=== PATIENT | female | born 1995 | race Caucasian/White ===

== ENCOUNTER 2021-04-15 16:56 | Emergency (ER) | payer OTHER ==
--- NOTE | 2021-04-15 17:45 | EDM.PDOC ---
ED HPI GENERAL MEDICAL PROBLEM - General Chief Complaint: Laceration Stated Complaint: LACERATION TO L HAND Time Seen by Provider: 04/15/21 17:19 Source of Information: Reports: Patient History Limitations: Reports: No Limitations - History of Present Illness INITIAL COMMENTS - FREE TEXT/NARRATIVE: Patient opening a can of fruit. The lid slipped and cut the area between her th umb and index finger on the left side. Last tetanus 2015. No other complaints. No other injuries. Has intact circulation and neurologic function. Onset: Today Location: Reports: Upper Extremity, Left Severity: Mild Associated Symptoms: Reports: No Other Symptoms - Related Data Allergies Allergy/AdvReac Type Severity Reaction Status Date / Time No Known Allergies Allergy Verified 04/15/21 18:21 Home Meds: Home Meds Dextroamphetamine/Amphetamine [Adderall Xr 10 mg Capsule] 20 mg PO DAILY 04/15/21 [History] Escitalopram [Lexapro] 20 mg PO DAILY 04/15/21 [History] Gabapentin [Neurontin] 300 mg PO QID PRN 04/15/21 [History] [place] Carbonate 600 mg PO DAILY 04/15/21 [History] [place] Carbonate [Lithobid] 300 mg PO DAILY 04/15/21 [History] ED ROS GENERAL - Review of Systems Review Of Systems: See Below Constitutional: Reports: No Symptoms HEENT: Reports: No Symptoms Respiratory: Reports: No Symptoms Cardiovascular: Reports: No Symptoms Endocrine: Reports: No Symptoms GI/Abdominal: Reports: No Symptoms : Reports: No Symptoms Musculoskeletal: Reports: No Symptoms Skin: Reports: Wound (laceration to left hand to tissue between thumb and index finger) Neurological: Reports: No Symptoms Psychiatric: Reports: No Symptoms Hematologic/Lymphatic: Reports: No Symptoms Immunologic: Reports: No Symptoms ED EXAM, GI/ABD - Physical Exam Exam: See Below Exam Limited By: No Limitations General Appearance: Alert, WD/WN, No Apparent Distress Eyes: Bilateral: Normal Appearance, EOMI Ears: Normal External Exam, Normal Canal, Hearing Grossly Normal, Normal TMs Nose: Normal Inspection, Normal Mucosa, No Blood Throat/Mouth: Normal Inspection, Normal Lips, Normal Teeth, Normal Gums, Normal Oropharynx, Normal Voice, No Airway Compromise Head: Atraumatic, Normocephalic Neck: Normal Inspection, Supple, Non-Tender, Full Range of Motion Respiratory/Chest: No Respiratory Distress, Lungs Clear, Normal Breath Sounds, No Accessory Muscle Use, Chest Non-Tender Cardiovascular: Normal Peripheral Pulses, Regular Rate, Rhythm, No Edema, No Gallop, No JVD, No Murmur, No Rub GI/Abdominal Exam: Normal Bowel Sounds, Soft, Non-Tender, No Organomegaly, No Distention, No Abnormal Bruit, No Mass, Pelvis Stable Extremities: Normal Inspection, Normal Range of Motion, Non-Tender, Normal Capillary Refill, No Pedal Edema Neurological: Alert, Oriented, CN II-XII Intact, Normal Cognition, Normal Gait, Normal Reflexes, No Motor/Sensory Deficits Psychiatric: Normal Affect, Normal Mood Skin Exam: Warm, Dry, Normal Color, No Rash, Wound/Incision (1.2 cm wound to tissue of the hand between the left thumb and index finger) Lymphatic: No Adenopathy ED LACERATION PROCEDURES - Laceration/Wound Repair Left Digit - 1st (Thumb) Lac/wound length in cm: 1.2 Appearance: Linear Distal NVT: Neuro & Vascular Intact, No Tendon Injury Anesthetic Type: Local Local Anesthesia - Lidocaine (Xylocaine): 1% Plain Local Anesthetic Volume: 3cc Skin Prep: Providone-Iodine (Betadine), Saline, Other Exploration/Debridement/Repair: Wound Explored, In a Bloodless Field, Explored to Base Closed with: Sutures Suture Size: 4-0 # of Sutures: 4 Suture Type: Nylon, Interrupted Sterile Dressing Applied: Provider Tetanus Status Addressed: Yes Complications: No Course - Vital Signs Last Recorded V/S: Last Vital Signs Temp 37.1 C 04/15/21 17:05 Pulse 97 04/15/21 17:05 Resp 16 04/15/21 17:05 BP 122/66 04/15/21 17:05 Pulse Ox 99 04/15/21 17:05 - Orders/Labs/Meds Meds: Medications Discontinued Medications Generic Name Dose Route Start Last Admin Trade Name Freq PRN Reason Stop Dose Admin Lidocaine HCl 5 ml 04/15/21 17:26 Lidocaine 1% 5 Ml Sdv INJECT 04/15/21 17:27 ONETIME ONE Departure - Departure Time of Disposition: 17:51 Disposition: Home, Self-Care 01 Condition: Good Clinical Impression: Laceration - Discharge Information *PRESCRIPTION DRUG MONITORING PROGRAM REVIEWED*: Not Applicable *COPY OF PRESCRIPTION DRUG MONITORING REPORT IN PATIENT DANN: Not Applicable Instructions: Laceration Care, Adult Referrals: Wilfred Maher NP [Primary Care Provider] - Forms: ED Department Discharge Additional Instructions: 1 Keep clean and dry 2 Return in 10 days for suture removal 3 Watch for signs of infection including redness, pus like drainage, increased pain and swelling, fever 4 Do not submerge in water 5 Call with any questions or concerns Sepsis Event Note (ED) - Focused Exam Vital Signs: Vital Signs Temp Pulse Resp BP Pulse Ox 04/15/21 17:05 37.1 C 97 16 122/66 99 - Problem List & Annotations (1) Laceration SNOMED Code(s): 616367409 Code(s): KQT0657 - Status: Acute Current Visit: No - Assessment/Plan Assessment:: Laceration left hand Plan: 1 Keep clean and dry 2 Return in 10 days for suture removal 3 Watch for signs of infection including redness, pus like drainage, increased pain and swelling, fever 4 Do not submerge in water 5 Call with any questions or concerns
== END 2021-04-15 17:51 | disposition home or self-care (01) ==
LOC: VM.ED 16:56
DX: S61.012A Laceration without foreign body of left thumb without damage to nail, initial encounter (principal); W26.8XXA Contact with other sharp object(s), not elsewhere classified, initial encounter
CPT/HCPCS: 12001; 99282-25; 99283